=== PATIENT | female | born 1985 | race Caucasian/White ===

== ENCOUNTER 2019-01-23 17:27 | Emergency (ER) | payer BC, MEDICAID ==
[2019-01-23 17:45] VITALS: BP 117/42
--- NOTE | 2019-01-23 19:45 | EDM.PDOC ---
ED HPI GENERAL MEDICAL PROBLEM - General Chief Complaint: SPANISH MEDICAL INTERPRETER Problem Stated Complaint: 16 WKS ,SPOTTING AND CRAMPING Time Seen by Provider: 01/23/19 18:27 Source of Information: Reports: Patient History Limitations: Reports: No Limitations - History of Present Illness INITIAL COMMENTS - FREE TEXT/NARRATIVE: This this lady is 16 weeks gestation she is a 4 para 3 and she complains of some spotting off and on for the past 3 days. Sometimes is pinkish and sometimes little bit brownish. She has some cramps sort of like menstrual cramps. She called and spoke with an OB nurse and was told she needs to come in for a recheck. Check an ultrasound last week and said everything was okay. She' s not having any other problems denies any recent intercourse. 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 ED EXAM - Physical Exam Exam: See Below Exam Limited By: No Limitations General Appearance: Alert, WD/WN, No Apparent Distress GI/Abdominal Exam: Soft, Non-Tender, Other (Uterus is nontender size consistent with 16 weeks) (Female) Exam: Vaginal Discharge (There is just very scant [place] vaginal discharge just about 1 mm or so. Nothing that looks like any kind of fresh blood. Only a small amount of the cervix could be easily visualized and it looks okay.), Other (See nurses notes regarding heart tones) Heart Tones: Present Course - Vital Signs Last Recorded V/S: Last Vital Signs Temp 36.1 C 01/23/19 18:17 Pulse 72 01/23/19 18:17 Resp 16 01/23/19 18:17 BP 117/42 L 01/23/19 18:17 Pulse Ox 99 01/23/19 18:17 - Re-Assessments/Exams Free Text/Narrative Re-Assessment/Exam: 01/23/19 19:50 The patient was reassured that there is no active bleeding going on and just scant evidence of any previous bleeding. Departure - Departure Time of Disposition: 19:50 Disposition: Home, Self-Care 01 Condition: Fair Clinical Impression: Second trimester bleeding - Discharge Information Referrals: Jim Ascencio MD [Primary Care Provider] - Forms: ED Department Discharge Additional Instructions: There is just a scant amount of light brownish discharge. This suggests you may have had a little tiny bit of bleeding but nothing which is actively bleeding. If you have more problems feel free to return to the ER or contact your Dr. Avoid any intercourse for the next several days.
== END 2019-01-23 20:01 | disposition home or self-care (01) ==
LOC: JP.ED 17:27
DX: O20.9 Hemorrhage in early pregnancy, unspecified (principal); Z3A.16 16 weeks gestation of pregnancy; Z79.899 Other long term (current) drug therapy
CPT/HCPCS: 99283

== ENCOUNTER 2019-02-13 09:31 | Emergency (ER) | payer BC, MEDICAID ==
[2019-02-13] MEDS ORDERED: Sodium Chloride 0.9% 1,000 ML IV SCH ×2 (10:15→11:00)
--- NOTE | 2019-02-13 12:29 | EDM.PDOC ---
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 She is and she has not passed out in the past. She has had a cold and she was recently started on a antibiotic. She has taken 2 of these and did not feel nauseated from them. She did get nauseated in the ambulance and she was given zoforan. 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: this is pt.'s fourth , had one baby at 35 weeks and another started having early labor at 32 weeks Psychiatric History: Reports: Depression - Infectious Disease History Infectious Disease History: Reports: Chicken Pox, Shingles Social & Family History - Tobacco Use Smoking Status *Q: Former Smoker Years of Tobacco use: 12 Packs/Tins Daily: 1 Used Tobacco, but Quit: Yes Month/Year Tobacco Last Used: 2008 Second Hand Smoke Exposure: No - Caffeine Use Caffeine Use: Reports: Coffee Other Caffeine Use: 2 cups coffee per day - Alcohol Use Days Per Week of Alcohol Use: 0 - Recreational Drug Use Recreational Drug Use: No ED ROS GENERAL - Review of Systems Review Of Systems: See Below Constitutional: Reports: Chills, Malaise, Other (pt has had a cough. ) Respiratory: Reports: Cough Cardiovascular: Reports: Syncope Endocrine: Reports: No Symptoms GI/Abdominal: Reports: No Symptoms : Reports: No Symptoms Musculoskeletal: Reports: No Symptoms Skin: Reports: No Symptoms Neurological: Reports: Other (pt did have a syncopal episode at work. She is in her 2nd trimester of preg. ) - Physical Exam Exam: See Below Text/Narrative:: pt arrived after passing out at work today. She is in her seconmd trimester of preg. She had recent spotting but is not spotting now. She does not have abdomanal pain. Exam Limited By: No Limitations General Appearance: Alert, No Apparent Distress, Anxious, Other (pt was nauseated in the ambulance. ) Ears: Normal TMs Nose: Normal Inspection Throat/Mouth: Normal Inspection Head Exam: Atraumatic Neck: Normal Inspection Respiratory/Chest: No Respiratory Distress Cardiovascular: Regular Rate, Rhythm, Tachycardia GI/Abdominal: Other (no tenderness. good heart tones at 147) (Female) Exam: Deferred Rectal (Female) Exam: Deferred Neuro Exam (Abbreviated): Alert, Oriented, Normal Cognition Back Exam: Normal Inspection Extremities: Normal Inspection Psychiatric: Normal Affect Course - Vital Signs Last Recorded V/S: Last Vital Signs Temp 36.6 C 02/13/19 09:53 Pulse 73 02/13/19 12:15 Resp 16 02/13/19 12:15 BP 108/48 L 02/13/19 12:15 Pulse Ox 98 02/13/19 12:15 Orthostatic Blood Pressure [ 115/50 Standing] Orthostatic Blood Pressure [ 124/51 Sitting] Orthostatic Blood Pressure [ 128/50 Supine] - Orders/Labs/Meds Orders: Active Orders 24 hr Category Date Time Status Orthostatic Vital Signs [RC] ASDIRECTED Care 02/13/19 10:56 Active Sodium Chloride 0.9% [Normal Saline] 1,000 ml Med 02/13/19 10:15 Active IV ASDIRECTED Sodium Chloride 0.9% [Normal Saline] 1,000 ml Med 02/13/19 11:00 Active IV ASDIRECTED Medication Orders Sodium Chloride (Normal Saline) 1,000 mls @ 999 mls/hr IV ASDIRECTED TRAN Last Admin: 02/13/19 10:14 Dose: 999 mls/hr Sodium Chloride (Normal Saline) 1,000 mls @ 999 mls/hr IV ASDIRECTED TRAN Last Admin: 02/13/19 11:32 Dose: 999 mls/hr Labs: Laboratory Tests 02/13/19 02/13/19 02/13/19 Range/Units 10:10 10:10 10:48 WBC 7.1 (4.5-11.0) K/uL RBC 3.73 (3.30-5.50) M/uL Hgb 11.1 L (12.0-15.0) g/dL Hct 33.2 L (36.0-48.0) % MCV 89 (80-98) fL MCH 30 (27-31) pg MCHC 33 (32-36) % Plt Count 191 (150-400) K/uL Neut % (Auto) 80 H (36-66) % Lymph % (Auto) 13 L (24-44) % [facility] % (Auto) 6 (2-6) % Eos % (Auto) 1 L (2-4) % Baso % (Auto) 0 (0-1) % Sodium 137 L (140-148) mmol/L Potassium 3.6 (3.6-5.2) mmol/L Chloride 104 (100-108) mmol/L Carbon Dioxide 23 (21-32) mmol/L Anion Gap 13.6 (5.0-14.0) mmol/L BUN 10 (7-18) mg/dL Creatinine 0.6 (0.6-1.0) mg/dL Est Cr Clr Drug Dosing 117.31 mL/min Estimated GFR (MDRD) > 60 (>60) Glucose 94 (74-106) mg/dL Calcium 8.3 L (8.5-10.1) mg/dL Total Bilirubin 0.5 (0.2-1.0) mg/dL AST 25 (15-37) U/L ALT 25 (12-78) U/L Alkaline Phosphatase 62 (46-116) U/L Total Protein 6.1 L (6.4-8.2) g/dL Albumin 2.8 L (3.4-5.0) g/dL Globulin 3.3 (2.3-3.5) g/dL Albumin/Globulin Ratio 0.9 L (1.2-2.2) Urine Color Yellow Urine Appearance Slightly cloudy Urine pH 6.0 (4.5-8.0) Ur Specific [place] 1.015 (1.008-1.030) Urine Protein Negative (NEGATIVE) mg/dL Urine Glucose (UA) Normal (NEGATIVE) mg/dL Urine Ketones Negative (NEGATIVE) mg/dL Urine Occult Blood Negative (NEGATIVE) Urine Nitrite Negative (NEGATIVE) Urine Bilirubin Negative (NEGATIVE) Urine Urobilinogen Normal (NORMAL) mg/dL Ur Leukocyte Esterase Negative (NEGATIVE) Urine RBC Not seen (0-5) Urine WBC 0-5 (0-5) Ur Epithelial Cells Moderate Amorphous Sediment Moderate Urine Bacteria Rare Urine Mucus Few Meds: Medications Generic Name Dose Route Start Last Admin Trade Name Josué PRN Reason Stop Dose Admin Sodium Chloride 1,000 mls @ 999 mls/hr 02/13/19 10:15 02/13/19 10:14 Normal Saline IV 999 mls/hr ASDIRECTED TRAN Administration Sodium Chloride 1,000 mls @ 999 mls/hr 02/13/19 11:00 02/13/19 11:32 Normal Saline IV 999 mls/hr ASDIRECTED TRAN Administration - Re-Assessments/Exams Free Text/Narrative Re-Assessment/Exam: 02/13/19 12:36 pt had normal labs. She was given 2 liters of fluid. No sig contractions. She is not doing vag bleeding or spotting. Departure - Departure Time of Disposition: 12:57 Disposition: Home, Self-Care 01 Condition: Fair Clinical Impression: Syncope, Bronchitis - Discharge Information Referrals: Jim Ascencio MD [Primary Care Provider] - Forms: ED Department Discharge Care Plan Goals: push fluids, continue antibiotic, try to eat a lite breakfast before going to work, rtc if increased problems. - My Orders Last 24 Hours: My Active Orders 02/13/19 10:15 Sodium Chloride 0.9% [Normal Saline] 1,000 ml IV ASDIRECTED 02/13/19 10:56 Orthostatic Vital Signs [RC] ASDIRECTED 02/13/19 11:00 Sodium Chloride 0.9% [Normal Saline] 1,000 ml IV ASDIRECTED - Assessment/Plan Last 24 Hours: My Active Orders 02/13/19 10:15 Sodium Chloride 0.9% [Normal Saline] 1,000 ml IV ASDIRECTED 02/13/19 10:56 Orthostatic Vital Signs [RC] ASDIRECTED 02/13/19 11:00 Sodium Chloride 0.9% [Normal Saline] 1,000 ml IV ASDIRECTED
[2019-02-13 12:35] VITALS: BP 108/48
== END 2019-02-13 13:26 | disposition home or self-care (01) ==
LOC: JP.ED 09:31
DX: R55 Syncope and collapse (principal); J40 Bronchitis, not specified as acute or chronic; Z79.899 Other long term (current) drug therapy; Z87.891 Personal history of nicotine dependence
CPT/HCPCS: 36415; 80053; 81001; 85025; 96360; 96361; 99284; J7030

== ENCOUNTER 2019-06-16 02:45 | Inpatient (IN) | payer MEDICAID ==
[2019-06-16] MEDS ORDERED: Penicillin G Potassium 5 MILLUNITS in Sodium Chloride 0.9% 50 ML IV ONE (04:00)
[2019-06-16] MEDS ORDERED: Sodium Chloride 0.9% 10 ML Syringe FLUSH PRN ×3 (04:31→11:53)
--- NOTE | 2019-06-16 06:15 | PCM.LDHP ---
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 No real contractions..Positive AmniSure. Labs: GBS negative, ABO A pos, HIV negative, Rubella immune Location, : Reports: Abdomen Quality: Reports: Pressure Severity: Mild Improves with: Reports: None Worsens with: Reports: None - Related Data Allergies/Adverse Reactions: Allergies Allergy/AdvReac Type Severity Reaction Status Date / Time No Known Allergies Allergy Verified 02/13/19 09:50 Home Medications: Home Meds Citalopram [Citalopram HBr] 40 mg PO Q48H 01/23/19 [History] Pnv No.122/Iron/Folic Acid [ Multi Tablet] 1 tab PO DAILY 01/23/19 [ History] Iron 27 mg PO 06/02/19 [History] Past Medical History - Past Health History Medical/Surgical History: Denies Medical/Surgical History HEENT History: Reports: Impaired Vision 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, LMP (Approximate): Other OB/BYN History: this is pt.'s fourth , had one baby at 35 weeks and another started having early labor at 32 weeks Psychiatric History: Reports: Depression - Infectious Disease History Infectious Disease History: Reports: Chicken Pox Social & Family History - Family History Family Medical History: Noncontributory - Tobacco Use Smoking Status *Q: Former Smoker Years of Tobacco use: 3 Packs/Tins Daily: 1 Used Tobacco, but Quit: Yes Month/Year Tobacco Last Used: 2008 Second Hand Smoke Exposure: No - Caffeine Use Caffeine Use: Reports: Coffee Other Caffeine Use: 2 cups per day Caffeine Use Comment: 2 cups /day - Recreational Drug Use Recreational Drug Use: No H&P Review of Systems - Review of Systems: Review Of Systems: See Below General: Reports: No Symptoms HEENT: Reports: No Symptoms Pulmonary: Reports: No Symptoms Cardiovascular: Reports: No Symptoms Gastrointestinal: Reports: No Symptoms Genitourinary: Reports: No Symptoms Musculoskeletal: Reports: No Symptoms Skin: Reports: No Symptoms Psychiatric: Reports: No Symptoms Neurological: Reports: No Symptoms Hematologic/Lymphatic: Reports: No Symptoms Immunologic: Reports: No Symptoms L&D Exam - Exam Exam: See Below - Vital Signs Vital Signs: Last Vital Signs Temp 97.9 F 06/16/19 02:52 Pulse 85 06/16/19 02:52 Resp 18 06/16/19 02:52 BP 108/60 06/16/19 02:52 Pulse Ox Weight: 169 lb - OB Specific Contraction Duration (sec): 50 secs Contraction Frequency (min): 1 UC Contraction Intensity: Mild Movement: Active Heart Tones: Present Heart Rate (FHR) Variability: Moderate (6-25 bmp) Presentation: Vertex Estimated Weight: 6 pounds - Gross Score Gross Score Cervix Position: Midposition Gross Score Consistency: Soft Gross Score Effacement: >80% Gross Score Dilation: 1-2 cm Gross Score 's Station: -1 ,0 Gross Score Total: 9 - Exam General: Alert, Oriented HEENT: PERRLA, Mucosa Moist & [place], Pupils Equal Neck: Supple Lungs: Normal Respiratory Effort Cardiovascular: Regular Rate, Regular Rhythm GI/Abdominal Exam: Normal Bowel Sounds, Soft Rectal Exam: Normal Exam Genitourinary: Normal external exam, Enlarged uterus, Vaginal bleeding Back Exam: Normal Inspection, Full Range of Motion Extremities: No Pedal Edema, Normal Capillary Refill Skin: Warm, Dry, Intact Neurological: Cranial Nerves Intact, Reflexes Equal Bilateral Psychiatric: Alert, Normal Affect, Normal Mood - Patient Data Lab Results Last 24 hrs: Laboratory Results - last 24 hr 06/16/19 06/16/19 06/16/19 Range/Units 03:04 03:04 04:30 WBC 10.7 (4.5-11.0) K/uL RBC 4.10 (3.30-5.50) M/uL Hgb 11.9 L (12.0-15.0) g/dL Hct 36.2 (36.0-48.0) % MCV 88 (80-98) fL MCH 29 (27-31) pg MCHC 33 (32-36) % Plt Count 200 (150-400) K/uL Neut % (Auto) 69 H (36-66) % Lymph % (Auto) 21 L (24-44) % [place] % (Auto) 9 H (2-6) % Eos % (Auto) 1 L (2-4) % Baso % (Auto) 0 (0-1) % Urine Color Yellow Urine Appearance Clear Urine pH 5.0 (4.5-8.0) Ur Specific [place] 1.010 (1.008-1.030) Urine Protein Negative (NEGATIVE) mg/dL Urine Glucose (UA) Normal (NEGATIVE) mg/dL Urine Ketones Negative (NEGATIVE) mg/dL Urine Occult Blood Negative (NEGATIVE) Urine Nitrite Negative (NEGATIVE) Urine Bilirubin Negative (NEGATIVE) Urine Urobilinogen Normal (NORMAL) mg/dL Ur Leukocyte Esterase Negative (NEGATIVE) Urine RBC 0-5 (0-5) Urine WBC 0-5 (0-5) Ur Epithelial Cells Few Amorphous Sediment Not seen Urine Bacteria Few Urine Mucus Not seen Membrane Rupture Positive H (NEGATIVE) Result Diagrams: 06/16/19 04:30 - Problem List (1) SNOMED Code(s): 27848614 ICD Code: Z34.90 - ENCNTR FOR SUPRVSN OF NORMAL , UNSP, UNSP TRIMESTER Status: Acute Current Visit: Yes Qualifiers: Weeks of gestation: 36 weeks Qualified Code(s): Z3A.36 - 36 weeks gestation of (2) premature rupture of membranes SNOMED Code(s): 077262133, 636021047 ICD Code: O42.919 - PRETRM BARRY ROM, UNSP TIME BETW RUPT AND ONST LABR, UNSP TRI Status: Acute Current Visit: Yes Problem List Initiated/Reviewed/Updated: Yes Orders Last 24hrs: Active Orders 24 hr Category Date Time Status OB Check [OM.PC] Click to Edit Care 06/16/19 03:04 Ordered Peripheral IV Care [RC] . DIRECTED Care 06/16/19 04:31 Active Vaccines to be Administered [RC] PER UNIT ROUTINE Care 06/16/19 04:53 Hold Diphth,Pertuss(Acell),Tet Vac [Adacel] Med 06/18/19 04:53 Once 0.5 ml IM .ONCE ONE Oxytocin/Normal Saline [Pitocin in NS 20 Units/1,000 ML Med 06/16/19 06:15 Ordered ] 1,000 ml IV TITRATE Penicillin G Potassium [Pfizerpen] 2.5 millunits Med 06/16/19 08:00 Active Sodium Chloride 0.9% [Normal Saline] 50 ml IV Q4H Sodium Chloride 0.9% [Saline Flush] Med 06/16/19 04:31 Active 10 ml FLUSH ASDIRECTED PRN Peripheral IV Insertion Adult [OM.PC] Routine Oth 06/16/19 04:31 Ordered Medication Orders Diphtheria/Tetanus/Acell Pertussis (Adacel) 0.5 ml IM .ONCE ONE Stop: 06/18/19 04:54 Penicillin G Potassium 2.5 (millunits/ Sodium Chloride) 50 mls @ 100 mls/hr IV Q4H TRAN Oxytocin/Sodium Chloride (Pitocin In Ns 20 Units/1,000 Ml) 1,000 mls @ 6 mls/ hr IV TITRATE TRAN; Protocol Sodium Chloride (Saline Flush) 10 ml FLUSH ASDIRECTED PRN PRN Reason: Keep Vein Open Assessment/Plan Comment:: 33 year old 36 2/7 weeks PPROM no labor rupture at 0219 clear fluid. GBS neg ABO A pos Rubella immune HIV neg history of labor, had betamethasone a few weeks ago Plan: Augment with Pitocin Pain management per patient request Anticipate a vaginal delivery
[2019-06-16] MEDS ORDERED: fentaNYL 100 MCG/2 ML SDV IVPUSH PRN (06:24)
[2019-06-16] MEDS ORDERED: Acetaminophen 325 MG Tab PO PRN (06:24)
[2019-06-16] MEDS ORDERED: Penicillin G Potassium 2.5 MILLUNITS in Sodium Chloride 0.9% 50 ML IV SCH (08:00)
[2019-06-16] MEDS ORDERED: Sodium Chloride 0.9% 1,000 ML IV ONE (09:33)
[2019-06-16] MEDS ORDERED: Sodium Chloride 0.9% 1,000 ML IV SCH (10:00)
--- NOTE | 2019-06-16 11:23 | ANES ---
DATE OF SERVICE: 06/16/2019 INDICATION: I was called by the OB Department this morning for a young lady in labor, requesting a labor epidural. Was at the bedside at approximately about 9:30. A brief history and physical was done with the patient. The patient verbalizes that it has been a normal , she has no bleeding disorders, is not on any blood thinners, platelet count was approximately 200, and she has no allergies. Risks and benefits were reviewed with the patient including spinal headache and risk for infection. The patient verbalizes her understanding. She said she has had them a couple of times in the past and is ready for her labor epidural now. TECHNIQUE: The patient was then sat at the edge of the bed. Betadine prep x3 to the lumbar region was done. Sterile drape was placed. 1% lidocaine skin wheal and deep was done. A 17-gauge Tuohy needle was inserted at approximately the L4-5 position. Did have some right- sided paresthesia and hip pain, so Touhy was pulled out and readjusted slightly to the left, but reinserted in at L4-5. Loss of resistance was achieved. Negative paresthesia, negative heme, and negative CSF were noted. Loss of resistance was at approximately 6 cm. Catheter was easily placed. Touhy needle was withdrawn and catheter was pulled back and secured at approximately 14 cm. 3 mL test dose was then given. The patient was laid in the supine position with left uterine displacement and head of bed slightly elevated. The patient showed no signs of intravascular injection of local or subarachnoid injection of local anesthetic. I then proceeded to give the patient 12 mL of 0.2% ropivacaine bolus via the epidural and started her on a 0.2% ropivacaine drip at 12 mL an hour. The patient was having some relief prior to leaving the room and stated she was comfortable. Blood pressures maintained after the bolus. Please refer to the nurse's notes for vital signs. We will continue to monitor the patient as needed. Ramses Navarrete CRNA /[id number]
[2019-06-16] MEDS ORDERED: diphenhydrAMINE 50 MG/ML SDV IVPUSH PRN ×2 (11:53)
[2019-06-16] MEDS ORDERED: Naloxone 0.4 MG/ML SDV IVPUSH PRN (11:53)
[2019-06-16] MEDS ORDERED: ePHEDrine 50 MG/ML SDV IVPUSH PRN (11:53)
[2019-06-16] MEDS ORDERED: Ropivacaine 200 MG in Premix Bag 1 BAG EPIDUR SCH (12:15)
[2019-06-16] MEDS ORDERED: Ropivacaine 100 ML ONE (12:28)
[2019-06-16] MEDS ORDERED: Ibuprofen 200 MG Tab, 24 Tab Bulk Bottle PO PRN (13:17)
[2019-06-16] MEDS ORDERED: Acetaminophen 325 MG Tab, 50 Tab Bulk Bottle PO PRN (13:17)
--- NOTE | 2019-06-16 17:00 | PCM.DEL ---
L & D Note - General Info Date of Service: 06/16/19 (Childbirth) Mother's Due Date: 07/12/19 - Delivery Note Labor: Augmented by Oxytocin Delivery Outcome: Livebirth Infant Delivery Method: Spontaneous Vaginal Delivery-Single Infant Delivery Mode: Spontaneous Presentation: Vertex Nuchal Cord: None Anesthesia Type: Epidural Laceration: 1st Degree, Perineal Suture type: Vicryl Suture size: 3-0 Placenta: Intact, Spontaneous, Expressed Cord: 3 Vessels Estimated Blood Loss: 100 Resuscitation Needed: No : Bulb Syringe, Stimulated, Warmed, [place] Used Provider: Chiara Carson Score 1 min: 8 Score 5 min: 0 Second Stage Interventions: Reports: Encouragement Given, Pushing Effectively Delivery Comments (Free Text/Narrative):: This 33 year old G4 now P4 who is 36 2/7 weeks. Delivered via at 1248 a viable male in PAYTON position. He was placed on Mother's abdomen and cried spontaneously. He was dried and stimulated and transitioned. Apgars og 8,9. Three vessel cord. The placenta was expressed spontaneously intact. A small perineal 1st degree tear was repaired with 3-0 vicryl. No lacerations of the cervix, vagina, or rectum. EBL:100cc Mother and baby to post in stable condition. First stage 9858-2897 Second stage 7565-6488 Third stage [id number] - General Info Date of Service: 06/16/19 Admission Dx/Problem (Free Text): Admission Diagnosis/Problem Admission Diagnosis/Problem Functional Status: Reports: Pain Controlled - Review of Systems General: Reports: No Symptoms HEENT: Reports: No Symptoms Pulmonary: Reports: No Symptoms Cardiovascular: Reports: No Symptoms Gastrointestinal: Reports: No Symptoms Genitourinary: Reports: No Symptoms Musculoskeletal: Reports: No Symptoms Skin: Reports: No Symptoms Neurological: Reports: No Symptoms Psychiatric: Reports: No Symptoms - Patient Data Vitals - Most Recent: Last Vital Signs Temp 97.8 F 06/16/19 14:55 Pulse 67 06/16/19 14:55 Resp 18 06/16/19 14:55 BP 98/36 L 06/16/19 14:55 Pulse Ox 96 06/16/19 14:55 Weight - Most Recent: 168 lb 15.996 oz I&O - Last 24 Hours: Intake & Output 06/16/19 06/16/19 06/16/19 06:59 14:59 22:59 Intake Total 50 Balance 50 Lab Results Last 24 Hours: Laboratory Results - last 24 hr 06/16/19 06/16/19 06/16/19 Range/Units 03:04 03:04 04:30 WBC 10.7 (4.5-11.0) K/uL RBC 4.10 (3.30-5.50) M/uL Hgb 11.9 L (12.0-15.0) g/dL Hct 36.2 (36.0-48.0) % MCV 88 (80-98) fL MCH 29 (27-31) pg MCHC 33 (32-36) % Plt Count 200 (150-400) K/uL Neut % (Auto) 69 H (36-66) % Lymph % (Auto) 21 L (24-44) % [place] % (Auto) 9 H (2-6) % Eos % (Auto) 1 L (2-4) % Baso % (Auto) 0 (0-1) % Urine Color Yellow Urine Appearance Clear Urine pH 5.0 (4.5-8.0) Ur Specific [place] 1.010 (1.008-1.030) Urine Protein Negative (NEGATIVE) mg/dL Urine Glucose (UA) Normal (NEGATIVE) mg/dL Urine Ketones Negative (NEGATIVE) mg/dL Urine Occult Blood Negative (NEGATIVE) Urine Nitrite Negative (NEGATIVE) Urine Bilirubin Negative (NEGATIVE) Urine Urobilinogen Normal (NORMAL) mg/dL Ur Leukocyte Esterase Negative (NEGATIVE) Urine RBC 0-5 (0-5) Urine WBC 0-5 (0-5) Ur Epithelial Cells Few Amorphous Sediment Not seen Urine Bacteria Few Urine Mucus Not seen Membrane Rupture Positive H (NEGATIVE) Med Orders - Current: Current Medications Acetaminophen (Tylenol Bulk Bottle) 325 - 650 mg PO Q4H PRN PRN Reason: Pain Last Admin: 06/16/19 15:15 Dose: 1 bottle Diphenhydramine HCl (Benadryl) 25 mg IVPUSH Q6H PRN PRN Reason: Itching Diphenhydramine HCl (Benadryl) 50 mg IVPUSH Q6H PRN PRN Reason: Itching Diphtheria/Tetanus/Acell Pertussis (Adacel) 0.5 ml IM .ONCE ONE Stop: 06/18/19 04:54 Ephedrine Sulfate (Ephedrine Sulfate) 10 mg IVPUSH ASDIRECTED PRN PRN Reason: Hypotension Fentanyl (Sublimaze) 100 mcg IVPUSH Q1H PRN PRN Reason: Pain (moderate 4-6) Oxytocin/Sodium Chloride (Pitocin In Ns 20 Units/1,000 Ml) 20 unit in 1,000 mls @ 6 mls/hr IV TITRATE TRAN; Protocol Last Titration: 06/16/19 11:17 Dose: 18 mls/hr Sodium Chloride (Normal Saline) 1,000 mls @ 75 mls/hr IV ASDIRECTED TRAN Ropivacaine 200 mg/ Premix 100 mls @ 12 mls/hr EPIDUR ASDIRECTED TRAN Ibuprofen (Motrin Bulk Bottle) 600 mg PO Q6H PRN PRN Reason: Pain Last Admin: 06/16/19 15:15 Dose: 1 bottle Naloxone HCl (Narcan) 0.1 mg IVPUSH ASDIRECTED PRN PRN Reason: Oversedation Sodium Chloride (Saline Flush) 10 ml FLUSH ASDIRECTED PRN PRN Reason: Keep Vein Open Discontinued Medications Acetaminophen (Tylenol) 650 mg PO Q4H PRN PRN Reason: Pain (Mild 1-3) and fever Penicillin G Potassium 5 (millunits/ Sodium Chloride) 50 mls @ 100 mls/hr IV ONETIME ONE Stop: 06/16/19 04:29 Last Admin: 06/16/19 05:28 Dose: 100 mls/hr Penicillin G Potassium 2.5 (millunits/ Sodium Chloride) 50 mls @ 100 mls/hr IV Q4H [facility] Sodium Chloride (Normal Saline) 1,000 mls @ 999 mls/hr IV .BOLUS ONE Stop: 06/16/19 10:33 Last Admin: 06/16/19 09:10 Dose: 999 mls/hr Ropivacaine (Naropin 0.2%) Confirm Administered Dose 100 mls @ as directed .ROUTE .STK-MED ONE Stop: 06/16/19 12:29 Oxytocin/Sodium Chloride (Pitocin In Ns 20 Units/1,000 Ml) 20 unit in 1,000 mls @ 999 mls/hr IV ONETIME ONE; Protocol Stop: 06/16/19 14:19 Last Admin: 06/16/19 12:50 Dose: 999 mls/hr, 999 mls/hr Sodium Chloride (Saline Flush) 10 ml FLUSH ASDIRECTED PRN PRN Reason: Keep Vein Open - Exam General: Alert, Oriented HEENT: Pupils Equal, Mucous Membr. Moist/[place] Neck: Supple Lungs: Clear to Auscultation, Normal Respiratory Effort Cardiovascular: Regular Rate, Regular Rhythm GI/Abdominal Exam: Soft, Pelvis Stable (Female) Exam: Enlarged Uterus, Vaginal Bleeding Back Exam: Normal Inspection, Full Range of Motion Extremities: Normal Inspection, No Pedal Edema, Normal Capillary Refill Skin: Warm, Dry, Intact Wound/Incisions: Healing Well Neurological: No New Focal Deficit Psy/Mental Status: Alert, Normal Affect, Normal Mood - Problem List & Annotations (1) SNOMED Code(s): 68346227 Code(s): Z34.90 - ENCNTR FOR SUPRVSN OF NORMAL , UNSP, UNSP TRIMESTER Status: Acute Current Visit: Yes Qualifiers: Weeks of gestation: 36 weeks Qualified Code(s): Z3A.36 - 36 weeks gestation of (2) premature rupture of membranes SNOMED Code(s): 805704227, 993583293 Code(s): O42.919 - PRETRM BARRY ROM, UNSP TIME BETW RUPT AND ONST LABR, UNSP TRI Status: Acute Current Visit: Yes Qualifiers: PROM onset of labor timing: onset of labor within 24 hours of rupture Qualified Code(s): O42.019 - premature rupture of membranes, onset of labor within 24 hours of rupture, unspecified trimester - Problem List Review Problem List Initiated/Reviewed/Updated: Yes - My Orders Last 24 Hours: My Active Orders 06/16/19 03:04 OB Check [OM.PC] Click to Edit 06/16/19 04:31 Peripheral IV Care [RC] . DIRECTED Peripheral IV Insertion Adult [OM.PC] Routine 06/16/19 04:53 Vaccines to be Administered [RC] PER UNIT ROUTINE 06/16/19 06:15 Oxytocin/Normal Saline [Pitocin in NS 20 Units/1,000 ML] 20 unit in 1,000 ml IV TITRATE 06/16/19 06:24 Communication Order [RC] ASDIRECTED Heart Tones [RC] PER UNIT ROUTINE Non Stress Test [RC] Click to Edit May Shower [RC] ASDIRECTED Notify Provider Vital Signs [RC] PRN Notify Provider [RC] PRN Up ad Carole [RC] ASDIRECTED fentaNYL [Sublimaze] 100 mcg IVPUSH Q1H PRN DVT/VTE Prophylaxis Reflex [OM.PC] Routine Saline Lock Insert [OM.PC] Routine Resuscitation Status Routine 06/16/19 06:26 Antiembolic Devices [RC] .Routine VTE/DVT Education [RC] Click to Edit 06/16/19 09:28 Epidural Catheter Management [OM.PC] Routine 06/16/19 09:30 Kim Catheter Insertion [Insert Urinary Catheter] [OM.PC] Q24H 06/16/19 10:00 Sodium Chloride 0.9% [Normal Saline] 1,000 ml IV ASDIRECTED 06/16/19 13:17 Patient Status [ADT] Routine Vital Signs [RC] PFP Acetaminophen [Tylenol Bulk Bottle] 325 - 650 mg PO Q4H PRN Ibuprofen [Motrin Bulk Bottle] 600 mg PO Q6H PRN 06/16/19 13:18 Ice Therapy [OM.PC] Per Unit Routine Perineal Care [OM.PC] Per Unit Routine Sitz Bath [OM.PC] Per Unit Routine 06/16/19 Lunch Regular Diet [DIET] 06/17/19 05:11 CBC WITH AUTO DIFF [HEME] AM 06/18/19 04:53 Diphth,Pertuss(Acell),Tet Vac [Adacel] 0.5 ml IM .ONCE ONE - Assessment Assessment:: 06/16/19 33 year old without complications, small perineal tear repaired Healthy male - Plan Plan:: 33 year old 36 2/7 weeks PPROM no labor rupture at 0219 clear fluid. GBS neg ABO A pos Rubella immune HIV neg history of labor, had betamethasone a few weeks ago Plan: Augment with Pitocin Pain management per patient request Anticipate a vaginal delivery 06/16/19 24-48 hour stay support routine cares
--- NOTE | 2019-06-17 07:14 | PCM.PNPP ---
- General Info Date of Service: 06/17/19 (PPD 1) Admission Dx/Problem (Free Text): Admission Diagnosis/Problem Admission Diagnosis/Problem Functional Status: Reports: Pain Controlled - Review of Systems General: Reports: No Symptoms HEENT: Reports: No Symptoms Pulmonary: Reports: No Symptoms Cardiovascular: Reports: No Symptoms Gastrointestinal: Reports: No Symptoms Genitourinary: Reports: No Symptoms Musculoskeletal: Reports: No Symptoms Skin: Reports: No Symptoms Neurological: Reports: No Symptoms Psychiatric: Reports: No Symptoms - General Info Date of Service: 06/17/19 - Patient Data Vital Signs - Most Recent: Last Vital Signs Temp 97.6 F 06/16/19 22:53 Pulse 68 06/16/19 22:53 Resp 16 06/16/19 22:53 BP 95/45 L 06/16/19 22:53 Pulse Ox 96 06/16/19 22:53 Weight - Most Recent: 168 lb 15.996 oz Lab Results - Last 24 Hours: Laboratory Results - last 24 hr 06/17/19 Range/Units 05:05 WBC 9.8 (4.5-11.0) K/uL RBC 4.02 (3.30-5.50) M/uL Hgb 11.7 L (12.0-15.0) g/dL Hct 35.7 L (36.0-48.0) % MCV 89 (80-98) fL MCH 29 (27-31) pg MCHC 33 (32-36) % Plt Count 196 (150-400) K/uL Neut % (Auto) 67 H (36-66) % Lymph % (Auto) 24 (24-44) % [place] % (Auto) 8 H (2-6) % Eos % (Auto) 1 L (2-4) % Baso % (Auto) 0 (0-1) % Med Orders - Current: Current Medications Acetaminophen (Tylenol Bulk Bottle) 325 - 650 mg PO Q4H PRN PRN Reason: Pain Last Admin: 06/16/19 15:15 Dose: 1 bottle Diphenhydramine HCl (Benadryl) 25 mg IVPUSH Q6H PRN PRN Reason: Itching Diphenhydramine HCl (Benadryl) 50 mg IVPUSH Q6H PRN PRN Reason: Itching Diphtheria/Tetanus/Acell Pertussis (Adacel) 0.5 ml IM .ONCE ONE Stop: 06/18/19 04:54 Ephedrine Sulfate (Ephedrine Sulfate) 10 mg IVPUSH ASDIRECTED PRN PRN Reason: Hypotension Fentanyl (Sublimaze) 100 mcg IVPUSH Q1H PRN PRN Reason: Pain (moderate 4-6) Oxytocin/Sodium Chloride (Pitocin In Ns 20 Units/1,000 Ml) 20 unit in 1,000 mls @ 6 mls/hr IV TITRATE TRAN; Protocol Last Titration: 06/16/19 11:17 Dose: 18 mls/hr Sodium Chloride (Normal Saline) 1,000 mls @ 75 mls/hr IV ASDIRECTED TRAN Ropivacaine 200 mg/ Premix 100 mls @ 12 mls/hr EPIDUR ASDIRECTED TRAN Ibuprofen (Motrin Bulk Bottle) 600 mg PO Q6H PRN PRN Reason: Pain Last Admin: 06/16/19 15:15 Dose: 1 bottle Naloxone HCl (Narcan) 0.1 mg IVPUSH ASDIRECTED PRN PRN Reason: Oversedation Sodium Chloride (Saline Flush) 10 ml FLUSH ASDIRECTED PRN PRN Reason: Keep Vein Open Discontinued Medications Acetaminophen (Tylenol) 650 mg PO Q4H PRN PRN Reason: Pain (Mild 1-3) and fever Penicillin G Potassium 5 (millunits/ Sodium Chloride) 50 mls @ 100 mls/hr IV ONETIME ONE Stop: 06/16/19 04:29 Last Admin: 06/16/19 05:28 Dose: 100 mls/hr Penicillin G Potassium 2.5 (millunits/ Sodium Chloride) 50 mls @ 100 mls/hr IV Q4H [facility] Sodium Chloride (Normal Saline) 1,000 mls @ 999 mls/hr IV .BOLUS ONE Stop: 06/16/19 10:33 Last Admin: 06/16/19 09:10 Dose: 999 mls/hr Ropivacaine (Naropin 0.2%) Confirm Administered Dose 100 mls @ as directed .ROUTE .STK-MED ONE Stop: 06/16/19 12:29 Oxytocin/Sodium Chloride (Pitocin In Ns 20 Units/1,000 Ml) 20 unit in 1,000 mls @ 999 mls/hr IV ONETIME ONE; Protocol Stop: 06/16/19 14:19 Last Admin: 06/16/19 12:50 Dose: 999 mls/hr, 999 mls/hr Sodium Chloride (Saline Flush) 10 ml FLUSH ASDIRECTED PRN PRN Reason: Keep Vein Open - Infant Interaction Disposition, : [place] in Room with Family Infant Interaction: Holding Infant Feeding: Breastfed ; Nursed Well Support Person: - Recovery Exam Fundal Tone: Firm Fundal Level: At Umbilicus Fundal Placement: Midline Lochia Amount: Scant Lochia Color: Rubra/Red Perineum Description: Edematous Episiotomy/Laceration: Approximated Bladder Status: Voiding Urinary Elimination: Voided - Exam General: Alert, Oriented HEENT: Pupils Equal, Mucous Membr. Moist/[place] Neck: Supple Lungs: Normal Respiratory Effort Cardiovascular: Regular Rate GI/Abdominal Exam: Soft, Pelvis Stable Extremities: Normal Inspection, No Pedal Edema Skin: Warm Wound/Incisions: Healing Well Neurological: No New Focal Deficit Psy/Mental Status: Alert, Normal Affect, Normal Mood - Problem List & Annotations (1) SNOMED Code(s): 18346273 Code(s): Z34.90 - ENCNTR FOR SUPRVSN OF NORMAL , UNSP, UNSP TRIMESTER Status: Acute Current Visit: Yes Qualifiers: Weeks of gestation: 36 weeks Qualified Code(s): Z3A.36 - 36 weeks gestation of (2) premature rupture of membranes SNOMED Code(s): 778776203, 759854230 Code(s): O42.919 - PRETRM BARRY ROM, UNSP TIME BETW RUPT AND ONST LABR, UNSP TRI Status: Acute Current Visit: Yes Qualifiers: PROM onset of labor timing: onset of labor within 24 hours of rupture Qualified Code(s): O42.019 - premature rupture of membranes, onset of labor within 24 hours of rupture, unspecified trimester - Problem List Review Problem List Initiated/Reviewed/Updated: Yes - My Orders Last 24 Hours: My Active Orders 06/16/19 06:15 Oxytocin/Normal Saline [Pitocin in NS 20 Units/1,000 ML] 20 unit in 1,000 ml IV TITRATE 06/16/19 06:24 Communication Order [RC] ASDIRECTED May Shower [RC] ASDIRECTED Notify Provider Vital Signs [RC] PRN Up ad Carole [RC] ASDIRECTED fentaNYL [Sublimaze] 100 mcg IVPUSH Q1H PRN DVT/VTE Prophylaxis Reflex [OM.PC] Routine Saline Lock Insert [OM.PC] Routine Resuscitation Status Routine 06/16/19 06:26 VTE/DVT Education [RC] Click to Edit 06/16/19 09:28 Epidural Catheter Management [OM.PC] Routine 06/16/19 09:30 Kim Catheter Insertion [Insert Urinary Catheter] [OM.PC] Q24H 06/16/19 10:00 Sodium Chloride 0.9% [Normal Saline] 1,000 ml IV ASDIRECTED 06/16/19 13:17 Patient Status [ADT] Routine Vital Signs [RC] PFP Acetaminophen [Tylenol Bulk Bottle] 325 - 650 mg PO Q4H PRN Ibuprofen [Motrin Bulk Bottle] 600 mg PO Q6H PRN 06/16/19 13:18 Ice Therapy [OM.PC] Per Unit Routine Perineal Care [OM.PC] Per Unit Routine Sitz Bath [OM.PC] Per Unit Routine 06/16/19 Lunch Regular Diet [DIET] 06/18/19 04:53 Diphth,Pertuss(Acell),Tet Vac [Adacel] 0.5 ml IM .ONCE ONE - Assessment Assessment:: 06/16/19 33 year old without complications, small perineal tear repaired Healthy male 06/17/19 uncomplicated mood-happy , great with good latch voiding flow light repair intact and not painful hgb 11.7 - Plan Plan:: 33 year old 36 2/7 weeks PPROM no labor rupture at 0219 clear fluid. GBS neg ABO A pos Rubella immune HIV neg history of labor, had betamethasone a few weeks ago Plan: Augment with Pitocin Pain management per patient request Anticipate a vaginal delivery 06/16/19 24-48 hour stay support routine cares 06/17/19 routine cares discharge tomorrow has great support system
[2019-06-18] MEDS ORDERED: Diphtheria,Pertussis(Acell),Tetanus Vaccine 0.5 ML SDV IM ONE (04:53)
[2019-06-18 07:38] VITALS: BP 87/35; PULSE 61
--- NOTE | 2019-06-18 08:18 | PCM.PNPP ---
- General Info Date of Service: 06/18/19 - Review of Systems General: Reports: No Symptoms HEENT: Reports: No Symptoms Pulmonary: Reports: No Symptoms Cardiovascular: Reports: No Symptoms Gastrointestinal: Reports: No Symptoms Genitourinary: Reports: No Symptoms Musculoskeletal: Reports: No Symptoms Skin: Reports: No Symptoms Neurological: Reports: No Symptoms Psychiatric: Reports: No Symptoms - Patient Data Vital Signs - Most Recent: Last Vital Signs Temp 36.1 C 06/18/19 07:35 Pulse 61 06/18/19 07:35 Resp 16 06/18/19 07:35 BP 87/35 L 06/18/19 07:35 Pulse Ox 97 06/18/19 07:35 Weight - Most Recent: 76.657 kg I&O - Last 24 Hours: Intake & Output 06/17/19 06/18/19 06/18/19 22:59 06:59 14:59 Intake Total 480 Balance 480 Med Orders - Current: Current Medications Acetaminophen (Tylenol Bulk Bottle) 325 - 650 mg PO Q4H PRN PRN Reason: Pain Last Admin: 06/16/19 15:15 Dose: 1 bottle Diphenhydramine HCl (Benadryl) 25 mg IVPUSH Q6H PRN PRN Reason: Itching Diphenhydramine HCl (Benadryl) 50 mg IVPUSH Q6H PRN PRN Reason: Itching Ephedrine Sulfate (Ephedrine Sulfate) 10 mg IVPUSH ASDIRECTED PRN PRN Reason: Hypotension Fentanyl (Sublimaze) 100 mcg IVPUSH Q1H PRN PRN Reason: Pain (moderate 4-6) Oxytocin/Sodium Chloride (Pitocin In Ns 20 Units/1,000 Ml) 20 unit in 1,000 mls @ 6 mls/hr IV TITRATE TRAN; Protocol Last Titration: 06/16/19 11:17 Dose: 18 mls/hr Sodium Chloride (Normal Saline) 1,000 mls @ 75 mls/hr IV ASDIRECTED TRAN Ropivacaine 200 mg/ Premix 100 mls @ 12 mls/hr EPIDUR ASDIRECTED TRAN Ibuprofen (Motrin Bulk Bottle) 600 mg PO Q6H PRN PRN Reason: Pain Last Admin: 06/16/19 15:15 Dose: 1 bottle Naloxone HCl (Narcan) 0.1 mg IVPUSH ASDIRECTED PRN PRN Reason: Oversedation Sodium Chloride (Saline Flush) 10 ml FLUSH ASDIRECTED PRN PRN Reason: Keep Vein Open Discontinued Medications Acetaminophen (Tylenol) 650 mg PO Q4H PRN PRN Reason: Pain (Mild 1-3) and fever Diphtheria/Tetanus/Acell Pertussis (Adacel) 0.5 ml IM .ONCE ONE Stop: 06/18/19 04:54 Penicillin G Potassium 5 (millunits/ Sodium Chloride) 50 mls @ 100 mls/hr IV ONETIME ONE Stop: 06/16/19 04:29 Last Admin: 06/16/19 05:28 Dose: 100 mls/hr Penicillin G Potassium 2.5 (millunits/ Sodium Chloride) 50 mls @ 100 mls/hr IV Q4H TRAN Sodium Chloride (Normal Saline) 1,000 mls @ 999 mls/hr IV .BOLUS ONE Stop: 06/16/19 10:33 Last Admin: 06/16/19 09:10 Dose: 999 mls/hr Ropivacaine (Naropin 0.2%) Confirm Administered Dose 100 mls @ as directed .ROUTE .STK-MED ONE Stop: 06/16/19 12:29 Oxytocin/Sodium Chloride (Pitocin In Ns 20 Units/1,000 Ml) 20 unit in 1,000 mls @ 999 mls/hr IV ONETIME ONE; Protocol Stop: 06/16/19 14:19 Last Admin: 06/16/19 12:50 Dose: 999 mls/hr, 999 mls/hr Sodium Chloride (Saline Flush) 10 ml FLUSH ASDIRECTED PRN PRN Reason: Keep Vein Open - Interaction Infant Disposition, : in Room with Family Interaction: Holding Infant Feeding: Breastfed ; Nursed Well Support Person: - Recovery Exam Fundal Tone: Firm Fundal Level: 2 Fingerbreadths Below Umbilicus Fundal Placement: Midline Lochia Amount: Small Lochia Color: Rubra/Red Perineum Description: Edematous Episiotomy/Laceration: Approximated Bladder Status: Voiding Urinary Elimination: Voided - Exam General: Alert, Oriented, Cooperative HEENT: Pupils Equal Neck: Supple Lungs: Clear to Auscultation, Normal Respiratory Effort Cardiovascular: Regular Rate, Regular Rhythm GI/Abdominal Exam: Normal Bowel Sounds, Soft, Non-Tender, No Organomegaly, No Distention, No Abnormal Bruit, No Mass, Pelvis Stable Extremities: Normal Inspection, Normal Range of Motion, Non-Tender, No Pedal Edema, Normal Capillary Refill Skin: Warm, Dry, Intact Neurological: No New Focal Deficit Psy/Mental Status: Alert, Normal Affect, Normal Mood - Problem List & Annotations (1) Vaginal delivery SNOMED Code(s): 338616791 Code(s): O80 - ENCOUNTER FOR FULL-TERM UNCOMPLICATED DELIVERY Status: Acute Current Visit: Yes (2) Normal labor and delivery SNOMED Code(s): 85091639, 93002374 Code(s): O80 - ENCOUNTER FOR FULL-TERM UNCOMPLICATED DELIVERY Status: Acute Current Visit: Yes (3) SNOMED Code(s): 88328640 Code(s): Z34.90 - ENCNTR FOR SUPRVSN OF NORMAL , UNSP, UNSP TRIMESTER Status: Acute Current Visit: Yes Qualifiers: Weeks of gestation: 36 weeks Qualified Code(s): Z3A.36 - 36 weeks gestation of (4) premature rupture of membranes SNOMED Code(s): 927292641, 076771550 Code(s): O42.919 - PRETRM BARRY ROM, UNSP TIME BETW RUPT AND ONST LABR, UNSP TRI Status: Acute Current Visit: Yes Qualifiers: PROM onset of labor timing: onset of labor within 24 hours of rupture Qualified Code(s): O42.019 - premature rupture of membranes, onset of labor within 24 hours of rupture, unspecified trimester - Problem List Review Problem List Initiated/Reviewed/Updated: Yes - Assessment Assessment:: 06/16/19 33 year old without complications, small perineal tear repaired Healthy male 06/17/19 uncomplicated mood-happy , great with good latch voiding flow light repair intact and not painful hgb 11.7 06/18/2019 day two Bleeding decreasing and fundus firm well Voiding and passing gas Discharge home today - Plan Plan:: 33 year old 36 2/7 weeks PPROM no labor rupture at 0219 clear fluid. GBS neg ABO A pos Rubella immune HIV neg history of labor, had betamethasone a few weeks ago Plan: Augment with Pitocin Pain management per patient request Anticipate a vaginal delivery 06/16/19 24-48 hour stay support routine cares 06/17/19 routine cares discharge tomorrow has great support system 06/18/2019 Continue routine cares Continue to support and encourage Discharge home today To see Chiara in clinic for visit in six weeks
== END 2019-06-18 11:30 | disposition home or self-care (01) | DRG 807 ==
LOC: JP.OBCHECK 02:45 → JP.OB 04:00 → OBSVTOIN 12:40 → JP.MS 20:30
PROVIDERS: ADMIT Nurse Practitioner Family; ATTEND Nurse Practitioner Family
PROC: 10E0XZZ Delivery of Products of Conception, External Approach (ICD-10-PCS; principal; 2019-06-16)
PROC: 0HQ9XZZ Repair Perineum Skin, External Approach (ICD-10-PCS; 2019-06-16)
PROC: 00HU33Z Insertion of Infusion Device into Spinal Canal, Percutaneous Approach (ICD-10-PCS; 2019-06-16)
PROC: 3E0R3BZ Introduction of Anesthetic Agent into Spinal Canal, Percutaneous Approach (ICD-10-PCS; 2019-06-16)
DX: O42.013 Preterm premature rupture of membranes, onset of labor within 24 hours of rupture, third trimester (principal); Z37.0 Single live birth; O70.0 First degree perineal laceration during delivery; Z3A.36 36 weeks gestation of pregnancy; O99.344 Other mental disorders complicating childbirth; F32.9 Major depressive disorder, single episode, unspecified; Z79.899 Other long term (current) drug therapy
CPT/HCPCS: 36415; 51702; 59409; 81001; 84112; 85025; 99211; A9270-GY; J2540; J2590; J2795; J7030; J7050

== ENCOUNTER 2021-03-15 18:16 | Emergency (ER) | payer MEDICAID ==
[2021-03-15 18:35] VITALS: BP 133/73; PULSE 67
--- NOTE | 2021-03-15 18:58 | EDM.PDOC ---
ED HPI GENERAL MEDICAL PROBLEM - General Chief Complaint: Gastrointestinal Problem Stated Complaint: RIGHT SIDE PAIN Time Seen by Provider: 03/15/21 18:45 Source of Information: Reports: Patient History Limitations: Reports: No Limitations - History of Present Illness INITIAL COMMENTS - FREE TEXT/NARRATIVE: 35-year-old female who woke up in the middle of last night with right lower quadrant pain, fairly sharp, that responded to anti-inflammatories initially but is getting worse. She has developed peritoneal irritation, pain with walking or movement. No nausea or vomiting. Denies fevers or chills. Onset: Unknown/Unsure (Woke up with pain in the middle of the night) Duration: Hour(s): (At least 16 hours) Location: Reports: Abdomen (Right lower quadrant) Quality: Reports: Sharp Worsens with: Reports: Movement Associated Symptoms: Reports: No Other Symptoms Right Lower Abdomen Pain Score (Numeric/FACES): 5 - Related Data Allergies Allergy/AdvReac Type Severity Reaction Status Date / Time No Known Allergies Allergy Verified 03/15/21 18:38 Home Meds: Home Meds Citalopram [Citalopram HBr] 20 mg PO DAILY 01/23/19 [History] Past Medical History - Past Health History Medical/Surgical History: Denies Medical/Surgical History HEENT History: Reports: Impaired Vision BUYING INTERN History: Reports: Other BUYING INTERN History: this is pt.'s fourth , had one baby at 35 weeks and another started having early labor at 32 weeks Psychiatric History: Reports: Anxiety, Depression Dermatologic History: Reports: Eczema - Infectious Disease History Infectious Disease History: Reports: Chicken Pox - Past Surgical History Head Surgeries/Procedures: Reports: None Dermatological Surgical History: Reports: None Social & Family History - Family History Family Medical History: No Pertinent Family History - Tobacco Use Tobacco Use Status *Q: Former Tobacco User Years of Tobacco use: 6 Packs/Tins Daily: 1 Used Tobacco, but Quit: Yes Month/Year Tobacco Last Used: 2010 - Caffeine Use Caffeine Use: Reports: Coffee Other Caffeine Use: 2 cups per day Caffeine Use Comment: 2 cups /day - Recreational Drug Use Recreational Drug Use: No ED ROS GENERAL - Review of Systems Review Of Systems: See Below Constitutional: Denies: Fever, Chills Respiratory: Denies: Shortness of Breath Cardiovascular: Denies: Chest Pain GI/Abdominal: Reports: Abdominal Pain. Denies: Constipation, Diarrhea, Nausea, Vomiting Skin: Reports: No Symptoms Neurological: Reports: No Symptoms Psychiatric: Reports: No Symptoms ED EXAM, GI/ABD - Physical Exam Exam: See Below Exam Limited By: No Limitations General Appearance: Alert, No Apparent Distress (Looks uncomfortable but not distressed) Eyes: Bilateral: Normal Appearance Head: Atraumatic Respiratory/Chest: No Respiratory Distress Cardiovascular: Regular Rate, Rhythm GI/Abdominal Exam: Soft, Tender (Tender with rebound tenderness and mild guarding in the right lower quadrant, some peritoneal irritation is present) Course - Vital Signs Last Recorded V/S: Last Vital Signs Temp 97.3 F 03/15/21 18:37 Pulse 67 03/15/21 18:37 Resp 16 03/15/21 18:37 BP 133/73 03/15/21 18:37 Pulse Ox 100 03/15/21 18:37 - Orders/Labs/Meds Labs: Laboratory Tests 03/15/21 03/15/21 Range/Units 19:00 19:00 WBC 5.3 (4.5-11.0) K/uL RBC 4.35 (3.30-5.50) M/uL Hgb 12.1 (12.0-15.0) g/dL Hct 37.5 (36.0-48.0) % MCV 86 (80-98) fL MCH 28 (27-31) pg MCHC 32 (32-36) % Plt Count 273 (150-400) K/uL Neut % (Auto) 54 (36-66) % Lymph % (Auto) 38 (24-44) % [place] % (Auto) 7 H (2-6) % Eos % (Auto) 2 (2-4) % Baso % (Auto) 0 (0-1) % Sodium 143 (140-148) mmol/L Potassium 3.7 (3.6-5.2) mmol/L Chloride 105 (100-108) mmol/L Carbon Dioxide 25 (21-32) mmol/L Anion Gap 12.8 (5.0-14.0) mmol/L BUN 10 (7-18) mg/dL Creatinine 0.8 (0.6-1.0) mg/dL Est Cr Clr Drug Dosing 86.37 mL/min Estimated GFR (MDRD) > 60 (>60) Glucose 116 H (74-106) mg/dL Calcium 9.2 (8.5-10.1) mg/dL - Re-Assessments/Exams Free Text/Narrative Re-Assessment/Exam: 03/15/21 18:57 Patient's fallopian tubes are gone as of 6 months ago, is not possible. CBC and BMP were drawn, patient will undergo a CT of the abdomen pelvis without contrast. If appendix looks normal, it is likely ovarian cystic disease. 03/15/21 20:38 Labs returned normal, CT report is below Impression: 1. Nonspecific mild pelvic free fluid. 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 Consider follow-up ultrasound. 2. Otherwise no acute process demonstrated in the abdomen and pelvis. Normal appendix. No nephrolithiasis. The above was discussed with the patient, she will be discharged with 20 doses of ketorolac to take up to 4 times daily and can recheck with her primary provider to establish an ultrasound or possible BUYING INTERN evaluation or consultation if symptoms persist. Departure - Departure Time of Disposition: 20:47 Disposition: Home, Self-Care 01 Clinical Impression: Ovarian cyst Qualifiers: Laterality: right Qualified Code(s): N83.201 - Unspecified ovarian cyst, right side - Discharge Information Instructions: Ovarian Cyst, [id number] Referrals: Jim Ascencio MD [Primary Care Provider] - Forms: ED Department Discharge Care Plan Goals: Take 1 dose of pain medicine every 6-8 hours over the next 2 to 3 days, return anytime if worsening such as vomiting the medications or intractable pain. Consider rechecking with the clinic in the next few days to establish an ultrasound or further evaluation if needed. Sepsis Event Note (ED) - Evaluation Sepsis Screening Result: No Definite Risk - Focused Exam Vital Signs: Vital Signs Temp Pulse Resp BP Pulse Ox 03/15/21 18:37 97.3 F 67 16 133/73 100 03/15/21 18:33 97.3 F 67 16 133/73 100
--- NOTE | 2021-03-15 20:32 | CRLCT ---
Indication: Right lower quadrant pain Technique: Nonenhanced axial CT imaging through the abdomen and pelvis. Sagittal and coronal reconstructions are provided. Comparison: None Findings: There is unremarkable noncontrast appearance of the liver, gallbladder, spleen, pancreas, adrenal glands, and kidneys. There is no abdominal lymphadenopathy. There is normal caliber of the abdominal aorta. The stomach and duodenum are unremarkable. There are no abnormally distended small bowel loops. The appendix is noninflamed. There is no colonic wall thickening or mesenteric edema. There is mild pelvic free fluid. The uterus is grossly unremarkable. A 6 mm fat density focus in the right adnexa suggests presence of a small ovarian teratoma. The ovaries are nonenlarged. The urinary bladder is unremarkable. The osseous structures are unremarkable. The included lung bases are clear. Impression: 1. Nonspecific mild pelvic free fluid. 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 Consider follow-up ultrasound. 2. Otherwise no acute process demonstrated in the abdomen and pelvis. Normal appendix. No nephrolithiasis. Please note that all CT scans at this facility use dose modulation, iterative reconstruction, and/or weight-based dosing when appropriate to reduce radiation dose to as low as reasonably achievable. Dictated by Monica Valderrama MD @ 03/15/2021 8:30:[address] Monica Valderrama @ Mar 15 2021 8:30PM
== END 2021-03-15 20:48 | disposition home or self-care (01) ==
LOC: JP.ED 18:16
DX: N83.201 Unspecified ovarian cyst, right side (principal); Z87.891 Personal history of nicotine dependence
CPT/HCPCS: 36415; 74176; 80048; 85025; 99284-25